=== PATIENT | female | born 1990 | race Caucasian/White ===

== ENCOUNTER 2019-05-09 22:03 | Inpatient (IN) ==
[2019-05-09] MEDS ORDERED: ALPRAZolam 0.5 MG TABLET PO ONE (22:20)
[2019-05-09 22:31] LABS: Bilirubin,Urine Negative (Negative); Blood,Urine Negative (Negative); Clarity,Urine Clear (Clear); Color,Urine Yellow (Yellow); Glucose,Urine (UA) Normal (Normal); Ketones,Urine Negative (Negative); Leukocyte Esterase,Urine Trace (Negative); Nitrite,Urine Negative (Negative); Protein,Urine Negative (Neg-Trace); Specific Gravity,Urine 1.023 (1.010-1.025); Urobilinogen,Urine Normal (Normal)
[2019-05-09 22:34] LABS: Bacteria,Urine None Seen per hpf (None-Few); Hyaline Casts,Urine None Seen per lpf (None-Few); Squamous Epithelial Cell,Urine Many per lpf (None-Few)
[2019-05-09 22:43] LABS: INR 1.1; Prothrombin Time 12.8 Seconds (9.4-12.1)
[2019-05-09 22:46] LABS: Basophils # 0.1 K/mcL (0.0-0.2); Basophils % 0.8 %; Eosinophils # 0.1 K/mcL (0.0-0.6); Eosinophils % 0.8 %; Hematocrit 45.5 % (35.3-44.9); Hemoglobin 15.2 g/dL (11.5-15.4); Immature Granulocytes % 0.5 % (0-4); Lymphocytes % 26.6 %; Mean Corpuscular HGB Conc 33.4 g/dL (31.6-35.5); Mean Corpuscular Volume 86.7 fL (83.0-100.0); Mean Platelet Volume 9.5 fL (9.4-12.4); Monocytes # 0.7 K/mcL (0.0-1.3); Neutrophils # 7.4 K/mcL (1.6-8.9); Platelet Count 375 K/mcL (140-400); Red Blood Count 5.25 M/mcL (3.82-4.97); Red Cell Distribution Width 13.2 % (11.5-14.5); Segmented Neutrophils % 65.3 %; White Blood Count 11.4 K/mcL (4.3-11.1)
[2019-05-09 23:04] LABS: Amphetamine Screen,Urine Negative ng/mL (Cutoff=1000); Barbiturate Screen,Urine Negative ng/mL (Cutoff=200); Benzodiazepines Screen,Urine Negative ng/mL (Cutoff=200); Cannabinoid Screen,Urine Negative ng/mL (Cutoff = 50); Cocaine Screen,Urine Negative ng/mL (Cutoff= 300); Opiate Screen,Urine Negative ng/mL (Cutoff=300); Phencyclidine Screen,Urine Negative ng/mL (Cutoff=25)
[2019-05-09 23:09] LABS: Acetaminophen < 10 mcg/mL (10-20); Alanine Aminotransferase 81 Units/L (7-52); Albumin 4.7 g/dL (3.5-5.7); Albumin/Globulin Ratio 1.3 (1.1-2.2); Alkaline Phosphatase 73 Units/L (34-104); Aspartate Amino Transferase 80 Units/L (13-39); BUN/Creatinine Ratio 14 (6-26); Bilirubin,Total 0.6 mg/dL (0.3-1.0); Blood Urea Nitrogen 9 mg/dL (6-20); Calcium 10.1 mg/dL (8.6-10.3); Carbon Dioxide 21 mEq/L (23-29); Chloride 101 mEq/L (98-107); Ethanol < 10 mg/dL (Less than 10); Globulin 3.6 g/dL (2.4-3.5); Glucose 130 mg/dL (70-105); Osmolality,Calculated 284 (280-300); Potassium 3.7 mEq/L (3.5-5.1); Salicylate < 2.5 mg/dL (15.0-30.0); Sodium 137 mEq/L (136-145); Total Protein 8.3 g/dL (6.4-8.9); eGFR For African Americans > 60 (> 60); eGFR For Non-African Americans > 60 (> 60)
[2019-05-10] MEDS ORDERED: Mag Hydrox/Al Hydrox/Simeth 30 ML UDC PO PRN (01:12)
[2019-05-10] MEDS ORDERED: *HR* LORazepam 2 MG/ML VIAL IM PRN (01:12)
[2019-05-10] MEDS ORDERED: *HR* LORazepam 1 MG TABLET PO PRN (01:12)
[2019-05-10] MEDS ORDERED: MOM Conc 10 ML UD.LIQ PO PRN (01:12)
[2019-05-10] MEDS ORDERED: Haloperidol Lactate 5 MG/ML VIAL IM PRN (01:12)
[2019-05-10] MEDS ORDERED: Acetaminophen 325 MG TABLET PO PRN (01:12)
[2019-05-10] MEDS: ARIPiprazole 5 MG TABLET PO SCH (21:20)
[2019-05-10] MEDS: traZODone 50 MG TABLET PO PRN (21:22)
[2019-05-10] MEDS: hydrOXYzine pamoate 25 MG CAPSULE PO PRN (21:22)
[2019-05-11] MEDS: hydrOXYzine pamoate 25 MG CAPSULE PO PRN ×2 (16:22→21:38)
[2019-05-11] MEDS: ARIPiprazole 5 MG TABLET PO SCH (21:38)
[2019-05-11] MEDS: traZODone 50 MG TABLET PO PRN (21:38)
[2019-05-12 05:44] LABS: Albumin 4.1 g/dL (3.5-5.7); Albumin/Globulin Ratio 1.4 (1.1-2.2); Bilirubin,Direct 0.1 mg/dL (0.0-0.2); Bilirubin,Indirect 0.4 mg/dL (0.0-1.0); Bilirubin,Total 0.5 mg/dL (0.3-1.0); Globulin 2.9 g/dL (2.4-3.5)
[2019-05-12] MEDS: hydrOXYzine pamoate 25 MG CAPSULE PO PRN ×2 (14:55→21:00)
[2019-05-12] MEDS ORDERED: ARIPiprazole 5 MG TABLET PO SCH (21:00)
[2019-05-12] MEDS: traZODone 50 MG TABLET PO PRN (21:00)
[2019-05-13] MEDS: hydrOXYzine pamoate 25 MG CAPSULE PO PRN ×2 (12:18→21:19)
[2019-05-13] MEDS: traZODone 50 MG TABLET PO SCH (21:20)
[2019-05-14] MEDS: ARIPiprazole 10 MG TABLET PO SCH (08:56)
[2019-05-14] MEDS: hydrOXYzine pamoate 25 MG CAPSULE PO PRN ×2 (17:33→21:26)
[2019-05-14] MEDS: traZODone 50 MG TABLET PO SCH (21:26)
[2019-05-15] MEDS: ARIPiprazole 10 MG TABLET PO SCH (09:04)
[2019-05-15] MEDS: hydrOXYzine pamoate 25 MG CAPSULE PO SCH (20:58)
[2019-05-15] MEDS: traZODone 50 MG TABLET PO SCH (20:59)
[2019-05-16] MEDS: ARIPiprazole 10 MG TABLET PO SCH (08:37)
[2019-05-16] MEDS ORDERED: traZODone 50 MG TABLET PO PRN (09:42)
[2019-05-16] MEDS: hydrOXYzine pamoate 25 MG CAPSULE PO SCH (20:58)
[2019-05-17] MEDS: ARIPiprazole 10 MG TABLET PO SCH (09:00)
[2019-05-17 09:16] VITALS: BP 132/83
[2019-05-17] MEDS ORDERED: FLU Vac QV 19-20 (6Month+)/PF 0.5 ML SYRINGE IM ONE (10:37)
== END 2019-05-17 12:00 | disposition home or self-care (01) | DRG 753 ==
LOC: EMEROOARM 22:03 → 1ANU 22:03 → SUATTDRO 05-10 12:24
PROVIDERS: ADMIT Psychiatry & Neurology Psychiatry; ATTEND Psychiatry & Neurology Psychiatry